=== PATIENT | male | born 1980 | race Caucasian/White ===

== ENCOUNTER 2019-10-09 23:00 | Emergency (ER) | payer SELFPAY ==
[2019-10-09 23:31] VITALS: BMI 30.7
[2019-10-09] MEDS ORDERED: ONDANSETRON *ODT* 4 MG TABLET SL ONE (23:54)
[2019-10-10] MEDS ORDERED: ONDANSETRON *ODT* 4 MG TABLET ONE (00:11)
[2019-10-10] MEDS ORDERED: ACETAMINOPHEN 325 MG TABLET (FP) PO ONE (00:30)
[2019-10-10] MEDS ORDERED: ACETAMINOPHEN 325 MG TABLET (FP) ONE (00:34)
--- NOTE | 2019-10-10 00:45 | PDOC ---
Documentation entered by Abdullahi Cervantes SCRIBE, acting as scribe for Gena Mata MD. Gena Mata MD: This documentation has been prepared by the Billy moses Xhesika, SCRIBE, under my direction and personally reviewed by me in its entirety. I confirm that the documentation accurately reflects all work, treatment, procedures, and medical decision making performed by me. History of Present Illness - General Chief Complaint: Cold Symptoms Stated Complaint: FEVER/VOMITING/BODY PAIN Time Seen by Provider: 10/09/19 23:51 History Source: Patient Exam Limitations: No Limitations - History of Present Illness Initial Comments: 10/10/19 00:42 The patient is a 39 year old male with a significant PMH of HTN and HLD who presents to the emergency department for 2 days fever, chills, nausea, 1 episode of vomiting, and body aches. The patient states he has been eating and drinking normally. The patient denies chest pain, shortness of breath, headache and dizziness. Denies cough, nausea,diarrhea and constipation. Allergies: NKDA Past History - Past Medical History Allergies/Adverse Reactions: Allergies Allergy/AdvReac Type Severity Reaction Status Date / Time No Known Allergies Allergy Verified 10/10/19 00:05 Home Medications: Ambulatory Orders Amox-Tr/K Cl [Augmentin - 875Mg Tablet] 1 tab PO BID #20 tablet 10/10/19 COPD: No HTN: Yes Hypercholesterolemia: Yes - Surgical History Appendectomy: Yes Cholecystectomy: Yes - Psycho Social/Smoking Cessation Hx Smoking History: Never smoked Hx Alcohol Use: No Drug/Substance Use Hx: No Review of Systems - Review of Systems Able to Perform ROS?: Yes Comments:: 10/10/19 00:42 GENERAL/CONSTITUTIONAL: +fever or chills. +body aches HEAD, EYES, EARS, NOSE AND THROAT: No change in vision. No ear pain or discharge. No sore throat. CARDIOVASCULAR: No chest pain or shortness of breath. RESPIRATORY: No cough, wheezing, or hemoptysis. GASTROINTESTINAL: +vomiting. No nausea, diarrhea or constipation. GENITOURINARY: No dysuria, frequency, or change in urination. MUSCULOSKELETAL: No joint or muscle swelling or pain. No neck or back pain. SKIN: No rash NEUROLOGIC: No headache, vertigo, loss of consciousness, or change in strength/ sensation. ENDOCRINE: No increased thirst. No abnormal weight change. HEMATOLOGIC/LYMPHATIC: No anemia, easy bleeding, or history of blood clots. ALLERGIC/IMMUNOLOGIC: No hives or skin allergy. *Physical Exam - Vital Signs Last Vital Signs Temp Pulse Resp BP Pulse Ox 99.4 F 131 H 20 124/87 96 10/09/19 23:24 10/09/19 23:24 10/09/19 23:24 10/09/19 23:24 10/09/19 23:24 - Physical Exam 10/10/19 00:42 GENERAL: Awake, alert, and fully oriented, in no acute distress. +febrile HEAD: No signs of trauma EYES: PERRLA, EOMI, sclera anicteric, conjunctiva clear ENT: Auricles normal inspection, hearing grossly normal, nares patent. + exudates in the back of the throat. No kissing tonsils. Uvula is not edematous and is midline. NECK: Normal ROM, supple, no lymphadenopathy, JVD, or masses LUNGS: Breath sounds equal, clear to auscultation bilaterally. No wheezes, and no crackles HEART: +tachy. no murmurs, rubs or gallops ABDOMEN: Soft, nontender, normoactive bowel sounds. No guarding, no rebound. No masses EXTREMITIES: Normal range of motion, no edema. No clubbing or cyanosis. No cords, erythema, or tenderness NEUROLOGICAL: Cranial nerves II through XII grossly intact. Normal speech, normal gait SKIN: Warm, Dry, normal turgor, no rashes or lesions noted. ED Treatment Course - Medications Given in the ED: ED Medications Discontinued Medications Generic Name Dose Route Start Last Admin Trade Name Christianoq PRN Reason Stop Dose Admin Acetaminophen 650 mg 10/10/19 00:30 10/10/19 00:33 Tylenol - PO 10/10/19 00:31 650 mg ONCE ONE Administration Ondansetron HCl 8 mg 10/09/19 23:54 10/10/19 00:14 Zofran Odt - SL 10/09/19 23:55 Not Given ONCE ONE Medical Decision Making - Medical Decision Making 10/10/19 00:45 39-year-old male presents with 2 days of illness that include fever, chills, sore throat, 1 episode of vomiting, body aches Patient is not in any respiratory distress, his lungs are clear, he does not require supplemental oxygen Benign abdominal exam No neck stiffness or headache No gross focal neuro deficits Impression rule out strep, influenza, URI 10/10/19 01:12 Throat swab is positive for strep We will start Augmentin twice daily Prescription sent to [facility] Patient discharged home Discharge - Discharge Information Problems reviewed: Yes Clinical Impression/Diagnosis: Strep pharyngitis Condition: Stable Disposition: HOME - Admission No - Additional Discharge Information Prescriptions: Amox-Tr/K Cl [Augmentin - 875Mg Tablet] 1 tab PO BID #20 tablet - Follow up/Referral - Patient Discharge Instructions Patient Printed Discharge Instructions: DI for Strep Throat Additional Instructions: For fevers and body aches you need to take Tylenol or Motrin Keep hydrated Rest Go to the [facility] and picker / packer your medications and take them as they are prescribed Print Language: KHMER - Post Discharge Activity Work/Back to School Note: Back to Work
[2019-10-10] MEDS ORDERED: AMOX TR/POT CLAV 875MG/125MG TABLETS (FP) PO STA (01:06)
[2019-10-10] MEDS ORDERED: AMOX TR/POT CLAV 875MG/125MG TABLETS (FP) ONE (01:21)
[2019-10-10 01:28] VITALS: BP 130/68; PULSE 98; TEMP 99
== END 2019-10-10 01:28 | disposition home or self-care (01) ==
LOC: JER 23:00
DX: J02.0 Streptococcal pharyngitis (principal); B95.0 Streptococcus, group A, as the cause of diseases classified elsewhere; I10 Essential (primary) hypertension; E78.5 Hyperlipidemia, unspecified; Z90.49 Acquired absence of other specified parts of digestive tract
CPT/HCPCS: 87804; 87880; 99283-25

== ENCOUNTER 2023-04-06 18:11 | Emergency (ER) | payer OTHER ==
[2023-04-06 18:28] VITALS: BP 129/89; PULSE 92; RESP 18; TEMP 98; BMI 31.4
[2023-04-06 20:42] LABS: BASO % 0.5 % (0-2.0); EOS % 2.5 % (0-4.5); HEMATOCRIT 42.3 % (35.4-49); HEMOGLOBIN 14.7 GM/dL (11.7-16.9); LYMPH % 38.1 % (8-40); MCH 29.2 pg (25.7-33.7); MCHC 34.6 g/dl (32.0-35.9); MEAN CELL VOLUME 84.3 fl (80-96); MEAN PLT VOLUME 8.3 fl (7.5-11.1); MONO % 8.1 % (3.8-10.2); NEUT % 50.8 % (42.8-82.8); PLATELET COUNT 348 10^3/uL (134-434); RBC 5.02 M/mm3 (4.00-5.60); RDW 14.1 % (11.9-15.9); WHITE BLOOD COUNT 8.7 K/mm3 (4.0-10.0)
[2023-04-06 21:01] LABS: POTASSIUM 4.4 mmol/L (3.5-5.1)
[2023-04-06 21:02] LABS: CALCIUM 9.3 mg/dL (8.5-10.1)
[2023-04-06 21:03] LABS: ALBUMIN 4.2 g/dl (3.4-5.0); BLOOD UREA NITROGEN 13.2 mg/dL (7-18)
[2023-04-06 21:06] LABS: CREATININE 0.9 mg/dL (0.55-1.3)
[2023-04-06 21:08] LABS: BILIRUBIN,TOTAL 0.3 mg/dL (0.2-1); TOT PROT 7.6 g/dl (6.4-8.2)
[2023-04-06] MEDS ORDERED: IBUPROFEN 600 MG TABLET (FP) PO ONE ×2 (21:25→21:34)
[2023-04-06] MEDS ORDERED: CYCLOBENZAPRINE HCL 10 MG TABLET (FP) PO ONE (21:25)
[2023-04-06] MEDS ORDERED: CYCLOBENZAPRINE HCL 10 MG TABLET (FP) ONE (21:34)
== END 2023-04-06 21:54 | disposition home or self-care (01) ==
LOC: JER 18:11
DX: R07.89 Other chest pain (principal)
CPT/HCPCS: 36415; 80053; 84484; 85025; 93005; 93010; 99284-25

== ENCOUNTER 2024-07-08 18:55 | Emergency (ER) | payer OTHER ==
[2024-07-08 19:08] VITALS: BP 130/83; PULSE 104; RESP 16; TEMP 97.8; BMI 30.7
[2024-07-08] MEDS ORDERED: LIDOCAINE 4% PATCH TP ONE (20:55)
[2024-07-08] MEDS ORDERED: ACETAMINOPHEN 500 MG TABLET (FP) ONE (20:55)
[2024-07-08] MEDS: ACETAMINOPHEN 500 MG TABLET (FP) PO ONE (21:02)
[2024-07-08] MEDS: LIDOCAINE 4% PATCH TP ONE (21:03)
[2024-07-08] MEDS ORDERED: LIDOCAINE PATCH REMOVAL MC SCH (22:00)
[2024-07-08] MEDS ORDERED: IBUPROFEN 100 MG/5 ML UNIT DOSE CUPS ONE (22:10)
== END 2024-07-08 22:11 | disposition home or self-care (01) ==
LOC: JERFT 18:55
DX: M54.50 Low back pain, unspecified (principal); V49.40XA Driver injured in collision with unspecified motor vehicles in traffic accident, initial encounter
CPT/HCPCS: 72100-TC-FY; 99283-25